=== PATIENT | female | born 1940 | race Caucasian/White ===

== ENCOUNTER 2017-09-18 10:58 | Outpatient (CLI) | payer MEDICARE, OTHER ==
--- NOTE | 2017-09-18 13:30 | MRI ---
MRI RIGHT SHOULDER WITHOUT CONTRAST: HISTORY: Shoulder pain. COMPARISON: None. FINDINGS: Biceps Tendon: There is low-grade mild intraarticular biceps tendonosis. Visualized Labrum: There is maceration of the entirety of the labrum with 360-degree tearing. Cartilage: Complete cartilage denuding of the humeral head and of the glenoid. Rotator Cuff: There are hidden interstitial tears through the supraspinatus and infraspinatus tendons without defin ite bursal or articular surface extension. Subscapularis also has some deep interstitial tearing. Muscles: The muscle signal and bulk is normal. Bones: Moderate degenerative disease of the acromioclavicular joints. There is mild lateral downsloping of the acromion causing some subacromial narrowing with thickening of the coracoacromial ligament. Soft Tissues: Mild subacromial subdeltoid bursal effusion. There is extensive synovitis of the glenohumeral joint with debris within the joint itself. Bones: There is a large subchondral cyst of the humeral head and of the glenoid. Moderately advanced degene rative disease acromioclavicular joint. IMPRESSION: 1. 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 Complete cartilage loss as well as large martínez bchondral cysts and erosions of the humeral head and glenoid. There is subsequent extensive synoviti s of the axillary pouch. 2. Moderate interstitial tearing throughout the supraspinatus and infraspinatus tendons without defi nite bursal articular surface extension. 3. Mild lateral downsloping of the acromion causes mild distal acromial narrowing and bursal surface fraying. 4. 360-degree maceration of the labrum. POS: C
== END 2017-09-18 10:59 | disposition home or self-care (01) ==
LOC: TBSIIMAG 10:58
PROVIDERS: ATTEND Orthopaedic Surgery Sports Medicine
DX: M19.011 Primary osteoarthritis, right shoulder (principal); M25.811 Other specified joint disorders, right shoulder; M75.101 Unspecified rotator cuff tear or rupture of right shoulder, not specified as traumatic